=== PATIENT | female | born 1960 | race African-American/Black ===

== ENCOUNTER → 2017-04-03 | Outpatient (CLI) | payer OTHER ==
--- NOTE | 2017-04-03 14:43 | Diagnostic Imaging Report ---
Indication: Intractable back pain for past year Technique: Sagittal T1 fast spin echo, sagittal T2 fast echo, sagittal STIR, axial T2 fast spin echo and axial T1 images were obtained through the thoracic spine Comparison: None Findings: Bony alignment is normal. Vertebral body heights are preserved. The disc spaces are preserved. Vertebral body marrow signal is normal. Intrinsic cord signal is normal. No significant disc bulge or protrusion, spinal stenosis, or neural foraminal stenosis. Small nerve root sleeve cysts are seen at the left T2-3, left T4-5, bilateral C5-6, right T9-10, bilateral T11-12 neural foramina. The included extraspinal soft tissues are unremarkable. Impression: Essentially unremarkable exam. 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
== END | disposition home or self-care (01) ==
LOC: MRI 12:25
DX: M54.9 Dorsalgia, unspecified (principal); G89.29 Other chronic pain
CPT/HCPCS: 72146

== ENCOUNTER 2017-04-04 14:15 | Outpatient (CLI) | payer OTHER ==
--- NOTE | 2017-04-10 15:02 | Diagnostic Imaging Report ---
Indications: Chronic low back pain Technique: Sagittal STIR, sagittal and axial T1 weighted fast spin-echo, coronal, sagittal, and axial T2 weighted fast spin echo sequences of the lumbar spine were performed without IV gadolinium administration. Findings: Comparison: None The L1-2 disc is normal in height and signal. No significant annular bulge/protrusion or marginal osteophyte formation. Facet joints and ligamenta flava are unremarkable. Spinal canal, lateral recesses and neural foramina are normal in caliber. The L2-3 disc is normal in height and signal. No significant annular bulge/protrusion or marginal osteophyte formation. Facet joints and ligamenta flava are unremarkable. Spinal canal, lateral recesses and neural foramina are normal in caliber. The L3-4 disc is normal in height and signal. No significant annular bulge/protrusion or marginal osteophyte formation. Facet joints mildly hypertrophied. Ligaments are unremarkable. Spinal canal, lateral recesses and neural foramina are normal in caliber. The L4-L5 disc is normal in height and signal. Mild circumferential annular bulge indenting the ventral surface of the thecal sac.. Facet joints mildly hypertrophied. Ligaments are unremarkable. Lateral recesses mildly narrowed, left greater than right. Spinal canal, neural foramina are normal in caliber. The L5-S1 disc is normal in height and signal. No significant annular bulge/protrusion or marginal osteophyte formation. Facet joints and ligamenta flava are unremarkable. Spinal canal, lateral recesses and neural foramina are normal in caliber. Spinal cord ends at T12-L1. Conus medullaris, cauda equina, remainder of thecal sac contents intrinsically unremarkable. No intradural or extradural masses or fluid collections are demonstrated. Subcentimeter circumscribed focus of signal change and L5 vertebral body, T1 hypointense and STIR hyperintense. The lumbar vertebrae are otherwise normal in configuration and marrow signal characteristics , aside from degenerative changes described above. No fracture, lytic destruction, or other acute process is demonstrated. Paraspinous soft tissues are unremarkable. IMPRESSION: L4-5: Mild annular disc bulge, facet arthropathy. Mild bilateral recess narrowing. No obvious neural impingement. L3-4: Mild facet arthropathy. No obvious neural impingement. Remaining disc levels unremarkable Small circumscribed lesion in L5 vertebral body, nonspecific, may represent atypical hemangioma or atypical prominence of posterior intraosseous vascular space.
== END 2017-04-04 16:15 | disposition home or self-care (01) ==
LOC: MRI 14:15
DX: M54.5 Low back pain (principal); G89.29 Other chronic pain; M19.90 Unspecified osteoarthritis, unspecified site
CPT/HCPCS: 72148